=== PATIENT | male | born 1985 | race Caucasian/White ===

== ENCOUNTER 2016-11-12 04:34 | Emergency (ER) | payer BC ==
[2016-11-12 05:30] LABS: Hematocrit 49 % (42-52); Hemoglobin 16.4 g/dl (14.0-18.0); Mean Corpuscular HGB Conc 33 g/dl (31-36); Mean Corpuscular Hemoglobin 30 pg (27-31); Mean Corpuscular Volume 90 fL (80-94); Mean Platelet Volume 9 um3 (7.4-10.4); Red Blood Count 5.48 10^6/ul (4.0-5.4); Red Cell Distribution Width 13 % (10.5-15); White Blood Count 11.8 10^3/ul (3.5-10.8)
[2016-11-12 06:02] LABS: BUN/Creatinine Ratio 15.7 (8-20); Calcium 9.4 mg/dL (8.6-10.3); EGFR Non-African American 101.1 (>60); Potassium 3.7 mmol/L (3.5-5.0)
--- NOTE | 2016-11-12 06:05 | ED ---
Yang Long Benjamin, scribed for Cecil Reed MD on 11/12/16 at 0501 . Dizziness - HPI Summary HPI Summary: 31yo male c/o dizziness for a month. Pt came to ED today as his dizziness has gotten worse today. Pt also reports nausea and lightheadedness. Denies fever. Pt hasnt seen his PCP for his recent dizziness. - History Of Current Complaint Chief Complaint: EDDizziness Stated Complaint: NEAR SYNCOPE/NAUSEA/LIGHT HEADED Time Seen by Provider: 11/12/16 04:53 Hx Obtained From: Patient Onset/Duration: Still Present, Gradually Timing: Constant Severity Initially: Mild Severity Currently: Moderate Character: Lightheaded, Dizzy Aggravating Factor(s): Nothing Alleviating Factor(s): Nothing Associated Signs And Symptoms: Positive: Nausea, Fever - Allergies/Home Medications Allergies/Adverse Reactions: Allergies Allergy/AdvReac Type Severity Reaction Status Date / Time Procaine [From Novocain] Allergy Anxiety Verified 09/12/15 15:05 Pseudoephedrine Allergy GI Upset Verified 09/12/15 15:05 [From Sudafed] PMH/Surg Hx/FS Hx/Imm Hx Endocrine/Hematology History: Denies: Hx Diabetes, Hx Thyroid Disease Cardiovascular History: Denies: Hx Hypertension Respiratory History: Denies: Hx Asthma, Hx Chronic Obstructive Pulmonary Disease (COPD) GI History: Denies: Hx Ulcer Musculoskeletal History: Reports: Other Musculoskeletal History - right knee surgery x3, from sports injury Psychiatric History: Reports: Hx Anxiety, Hx Depression, Hx Inpatient Treatment , Hx Community Mental Health Tx, Hx Schizophrenia, Hx Substance Abuse Denies: Hx Attention Deficit Hyperactivity Disorder, Hx Eating Disorder, Hx Panic Disorder, Hx Post Traumatic Stress Disorder, Hx Bipolar Disorder, Hx Suicide Attempt, Hx of Violent Episodes Against Others, Other Psychiatric Issues /Disorders - Cancer History Hx Chemotherapy: No Hx Radiation Therapy: No Hx Palliative Cancer Treatment: No - Surgical History Surgery Procedure, Year, and Place: appe. right knee - meniscus and acl repair Hx Anesthesia Reactions: No Infectious Disease History: No Infectious Disease History: Denies: Hx Clostridium Difficile, Hx Hepatitis, Hx Human Immunodeficiency Virus (HIV), Hx of Known/Suspected MRSA, Hx Shingles, Hx Tuberculosis, Hx Known/ Suspected VRE, Hx Known/Suspected VRSA, Traveled Outside the [place] in Last 30 Days - Family History Known Family History: Positive: Other - schizophrenia - Social History Occupation: Unemployed Lives: Alone Alcohol Use: Rare Substance Use Type: Reports: Marijuana Substance Use Comment - Amount & Last Used: Daily use at home; 2-3 grams Smoking Status (MU): Never Smoked Tobacco Review of Systems Constitutional: Negative Eyes: Negative ENT: Negative Cardiovascular: Negative Respiratory: Negative Gastrointestinal: Negative Positive: Nausea Genitourinary: Negative Musculoskeletal: Negative Skin: Negative Neurological: Other - dizziness, lighheadedness Psychological: Normal All Other Systems Reviewed And Are Negative: Yes Physical Exam Triage Information Reviewed: Yes Vital Signs On Initial Exam: Initial Vitals Temp Pulse Resp BP Pulse Ox 98.5 F 77 18 142/88 100 11/12/16 04:40 11/12/16 04:40 11/12/16 04:40 11/12/16 04:40 11/12/16 04:40 Vital Signs Reviewed: Yes Appearance: Positive: Well-Appearing, No Pain Distress Skin: Positive: Warm Head/Face: Positive: Normal Head/Face Inspection Eyes: Positive: EOMI, SAYDA ENT: Positive: Hearing grossly normal Neck: Positive: Supple Respiratory/Lung Sounds: Positive: Clear to Auscultation, Breath Sounds Present Cardiovascular: Positive: RRR Abdomen Description: Positive: Nontender, Soft Bowel Sounds: Positive: Present Musculoskeletal: Positive: Strength/ROM Intact Neurological: Positive: Sensory/Motor Intact, Alert, Oriented to Person Place, Time, Normal Gait Diagnostics - Vital Signs Vital Signs Temp Pulse Resp BP Pulse Ox 11/12/16 04:55 99.1 F 78 18 132/70 98 11/12/16 04:40 98.5 F 77 18 142/88 100 - Laboratory Lab Results: Lab Results 11/12/16 11/12/16 Range/Units 05:00 05:00 WBC 11.8 H (3.5-10.8) 10^3/ul RBC 5.48 H (4.0-5.4) 10^6/ul Hgb 16.4 (14.0-18.0) g/dl Hct 49 (42-52) % MCV 90 (80-94) fL MCH 30 (27-31) pg MCHC 33 (31-36) g/dl RDW 13 (10.5-15) % Plt Count 217 (150-450) 10^3/ul MPV 9 (7.4-10.4) um3 Neut % (Auto) 69.5 (38-83) % Lymph % (Auto) 23.7 L (25-47) % [place] % (Auto) 5.9 (1-9) % Eos % (Auto) 0.4 (0-6) % Baso % (Auto) 0.5 (0-2) % Absolute Neuts (auto) 8.2 H (1.5-7.7) 10^3/ul Absolute Lymphs (auto) 2.8 (1.0-4.8) 10^3/ul Absolute Monos (auto) 0.7 (0-0.8) 10^3/ul Absolute Eos (auto) 0.1 (0-0.6) 10^3/ul Absolute Basos (auto) 0.1 (0-0.2) 10^3/ul Absolute Nucleated RBC 0 10^3/ul Nucleated RBC % 0 Sodium 137 (133-145) mmol/L Potassium 3.7 (3.5-5.0) mmol/L Chloride 103 (101-111) mmol/L Carbon Dioxide 26 (22-32) mmol/L Anion Gap 8 (2-11) mmol/L BUN 14 (6-24) mg/dL Creatinine 0.89 (0.67-1.17) mg/dL Est GFR ( Amer) 130.0 (>60) Est GFR (Non-Af Amer) 101.1 (>60) BUN/Creatinine Ratio 15.7 (8-20) Glucose 93 (70-100) mg/dL Calcium 9.4 (8.6-10.3) mg/dL Result Diagrams: 11/12/16 05:00 11/12/16 05:00 Lab Statement: Any lab studies that have been ordered have been reviewed, and results considered in the medical decision making process. Re-Evaluation - Re-Evaluation First Eval Change: Improved - results d/w pt Dizzy Course/Dx - Diagnoses Provider Diagnoses: Dizziness Discharge - Discharge Plan Condition: Stable Disposition: HOME Patient Education Materials: Dizziness (ED) Referrals: Luigi Ross MD [Primary Care Provider] - The documentation as recorded by the Yang mo Benjamin accurately reflects the service I personally performed and the decisions made by , Cecil Reed MD.
[2016-11-12 06:22] VITALS: BP 120/67
== END 2016-11-12 06:22 | disposition home or self-care (01) ==
LOC: ED 04:34
DX: R42 Dizziness and giddiness (principal)
CPT/HCPCS: 36415; 80048; 85025; 99282

== ENCOUNTER 2017-07-08 19:34 | Emergency (ER) | payer BC ==
[2017-07-08 19:49] VITALS: BP 171/94
--- NOTE | 2017-07-08 19:49 | UC ---
UC General HPI - HPI Summary HPI Summary: Pt presents with dizziness, tremor, nausea, and vomiting. He is uncooperative with obtaining the history and keeps wincing. When asked if he is in pain, he says "no, just give me a minute to calm down". After giving him a minute to calm down. He tells me that he is currently being treated for a sinus infection with amoxicillin, of which he is on day 5 of. For the last 2 days he has been nauseous with vomiting. Decreased appetite. Earlier today he found out his co-worker called in sick to work and this made him very anxious. He tells me that he has a history of anxiety and was on celexa in the past, but had an adverse reaction to this. Currently denies fever, cough, SOB, chest pain, abdominal pain. - History of Current Complaint Stated Complaint: FATIGUE,VOMITING Time Seen by Provider: 07/08/17 19:47 Hx Obtained From: Patient, Family/Lance Crewmember Onset/Duration: Sudden Onset Current Severity: None - Allergy/Home Medications Allergies/Adverse Reactions: Allergies Allergy/AdvReac Type Severity Reaction Status Date / Time procaine Allergy Anxiety Verified 07/08/17 19:52 pseudoephedrine Allergy GI Upset Verified 07/08/17 19:52 Home Medications: Home Medications Amoxicillin/Clavulanate TAB* [Augmentin TAB 500 mg*] 1,000 mg PO BID 07/08/17 [ History Confirmed 07/08/17] PMH/Surg Hx/FS Hx/Imm Hx Psychological History: Anxiety - Surgical History Surgical History: Yes Surgery Procedure, Year, and Place: appe. right knee - meniscus and acl repair - Family History Known Family History: Positive: Other - schizophrenia - Social History Alcohol Use: Rare Substance Use Type: Marijuana Substance Use Comment - Amount & Last Used: Daily use at home; 2-3 grams Smoking Status (MU): Never Smoked Tobacco - Immunization History Most Recent Influenza Vaccination: "never" Most Recent Tetanus Shot: 2005 Most Recent Pneumonia Vaccination: "never" Review of Systems Constitutional: Fatigue Skin: Negative Eyes: Negative ENT: Sinus Congestion Respiratory: Negative Cardiovascular: Other - Tachycardia Gastrointestinal: Vomiting, Nausea Genitourinary: Negative Neurovascular: Negative Musculoskeletal: Negative Neurological: Headache Psychological: Anxious All Other Systems Reviewed And Are Negative: Yes Physical Exam Triage Information Reviewed: Yes Appearance: No Pain Distress, Other: - diaphoretic lying on stretcher with hand covering his eyes at rest Vital Signs Reviewed: Yes Eyes: Positive: Conjunctiva Clear, Other: - EOMI. PERRLA ENT: Positive: Hearing grossly normal, Pharynx normal, Nasal congestion, TMs normal, Uvula midline. Negative: Pharyngeal erythema, TM bulging, TM dull, TM red, Tonsillar swelling, Muffled voice, Hoarse voice Neck: Positive: Supple, Nontender, No Lymphadenopathy Respiratory: Positive: Lungs clear, Normal breath sounds, No respiratory distress, No accessory muscle use Cardiovascular: Positive: No Murmur, Pulses Normal, Tachycardia Abdomen Description: Positive: Nontender, No Organomegaly, Soft. Negative: Distended, Guarding, McBurney's Point Tenderness Bowel Sounds: Positive: Present Neurological: Positive: Alert Psychological: Positive: Other: - Anxious Skin: Positive: rashes - Face Course/Dx - Course Course Of Treatment: EKG NSR 83bpm no ST changes as read by Dr. Zhou. I suspect viral gastroenteritis vs adverse reaction to antibiotic vs anxiety. He and his brother are requesting labwork and more definitive answers tonight - for this I suggested they go to the ED for further evaluation. They were agreeable with this plan and chose to go by private vehicle. - Differential Dx - Multi-Symptom Provider Diagnoses: Anxiety. Nausea. Vomiting Discharge - Discharge Plan Condition: Stable Disposition: OTHER Discharge Disposition Comment: To [facility] by private car Referrals: Luigi Ross MD [Primary Care Provider] - Additional Instructions: Please go directly to the [facility] ED - if your symptoms worse, please pot puller and dial [phone].
== END 2017-07-08 20:04 ==
LOC: UCEAST 19:34
DX: F41.9 Anxiety disorder, unspecified (principal); R11.2 Nausea with vomiting, unspecified; R42 Dizziness and giddiness; R53.83 Other fatigue; R00.0 Tachycardia, unspecified; R51 Headache; Z88.4 Allergy status to anesthetic agent; Z88.8 Allergy status to other drugs, medicaments and biological substances
CPT/HCPCS: 93005; 99212; G0463

== ENCOUNTER 2017-07-08 20:26 | Emergency (ER) | payer BC ==
[2017-07-08] MEDS ORDERED: Levalbuterol 1.25MG/0.5ML NEB INH ONE (22:39)
--- NOTE | 2017-07-08 22:46 | ED ---
Complex/Multi-Sys Presentation - HPI Summary HPI Summary: Vomiting w/ coughing only. No diarrhea - limited bowel movements since decreased appetite/food intake (he is still eating and drinking w/o pain). Augmentin Sunday for cough, sinusitis, otalgia - URI sx improving since taking - rash on face today which is red and daniel. Denies facial swelling, throat tightness, wheezing, chest tightness. Rash and vomiting started after taking augmentin. Has had amoxicillin in the past w/o difficulty however has not augmentin that he recalls. No h.o asthma however required breathing tx's a few times in the past (exposed to 2nd hand smoke as a child). Has not had a CXR since sx began 1 month ago (started as otalgia, nasal/sinus congestion and then moved into chest). He admits he continues to have PND. - History Of Current Complaint Chief Complaint: EDNauseaVomitDiarrh Time Seen by Provider: 07/08/17 22:09 Hx Obtained From: Patient, Family/Test Facility Engineer - brother - Allergies/Home Medications Allergies/Adverse Reactions: Allergies Allergy/AdvReac Type Severity Reaction Status Date / Time procaine Allergy Anxiety Verified 07/08/17 19:52 pseudoephedrine Allergy GI Upset Verified 07/08/17 19:52 PMH/Surg Hx/FS Hx/Imm Hx Previously Healthy: Yes Endocrine/Hematology History: Denies: Hx Diabetes, Hx Thyroid Disease Cardiovascular History: Denies: Hx Congenital Heart Disease, Hx Hypertension Respiratory History: Denies: Hx Asthma, Hx Chronic Obstructive Pulmonary Disease (COPD), Hx Pneumonia GI History: Denies: Hx Gastroesophageal Reflux Disease, Hx Ulcer Musculoskeletal History: Reports: Other Musculoskeletal History - right knee surgery x3, from sports injury Psychiatric History: Reports: Hx Anxiety, Hx Depression, Hx Inpatient Treatment , Hx Community Mental Health Tx, Hx Schizophrenia, Hx Substance Abuse Denies: Hx Attention Deficit Hyperactivity Disorder, Hx Eating Disorder, Hx Panic Disorder, Hx Post Traumatic Stress Disorder, Hx Bipolar Disorder, Hx Suicide Attempt, Hx of Violent Episodes Against Others, Other Psychiatric Issues /Disorders - Cancer History Hx Chemotherapy: No Hx Radiation Therapy: No Hx Palliative Cancer Treatment: No - Surgical History Surgery Procedure, Year, and Place: appe. right knee - meniscus and acl repair Hx Anesthesia Reactions: No Infectious Disease History: No Infectious Disease History: Denies: Hx Clostridium Difficile, Hx Hepatitis, Hx Human Immunodeficiency Virus (HIV), Hx of Known/Suspected MRSA, Hx Shingles, Hx Tuberculosis, Hx Known/ Suspected VRE, Hx Known/Suspected VRSA, Traveled Outside the [place] in Last 30 Days - Family History Known Family History: Positive: Other - schizophrenia, heart murmur - Social History Occupation: Employed Full-time Lives: Alone Alcohol Use: Rare Substance Use Type: Reports: Marijuana - helps w/ anxiety Substance Use Comment - Amount & Last Used: Daily use at home; 2-3 grams Hx Tobacco Use: No Smoking Status (MU): Never Smoked Tobacco Review of Systems Positive: Fatigue - tired of being sick Eyes: Negative Positive: Nasal Discharge. Negative: Sore Throat, Ear Ache Cardiovascular: Negative Positive: Cough. Negative: Shortness Of Breath Positive: Vomiting. Negative: Abdominal Pain, Diarrhea, Nausea Genitourinary: Negative Musculoskeletal: Negative Positive: Rash Neurological: Negative Positive: Anxious All Other Systems Reviewed And Are Negative: Yes Physical Exam Triage Information Reviewed: Yes Vital Signs On Initial Exam: Initial Vitals Temp Pulse Resp BP Pulse Ox 99.8 F 87 16 142/77 99 07/08/17 20:37 07/08/17 20:37 07/08/17 20:37 07/08/17 20:37 07/08/17 20:37 Vital Signs Reviewed: Yes Appearance: Positive: No Pain Distress, Ill-Appearing - appears fatigued and red rash on face, Obese Skin: Positive: Warm, Skin Color Reflects Adequate Perfusion, Dry - diffuse papular erythematous rash on face only - no vesicles, no pustules, no skin breakdown Head/Face: Positive: Normal Head/Face Inspection - otherwise normal than above Eyes: Positive: Normal, EOMI, SAYDA, Conjunctiva Clear - Anicteric sclera ENT: Positive: Hearing grossly normal, Pharyngeal erythema - Cobblestoning, Nasal congestion - Mild, TMs normal, Uvula midline. Negative: Tonsillar swelling, Tonsillar exudate, Trismus, Muffled voice, Hoarse voice, Sinus tenderness Neck: Positive: Supple, Nontender, No Lymphadenopathy Respiratory/Lung Sounds: Positive: Clear to Auscultation, Breath Sounds Present , Fatigue - Mild. Negative: Rales, Rhonchi, Stridor, Tracheal Deviation, Wheezes, Unable to speak in full sentences Cardiovascular: Positive: Normal, RRR, S1, S2. Negative: Murmur, Rub Abdomen Description: Positive: Nontender, No Organomegaly, Soft Bowel Sounds: Positive: Present Musculoskeletal: Positive: Normal, Strength/ROM Intact Neurological: Positive: Normal, Sensory/Motor Intact, Alert, Oriented to Person Place, Time, CN Intact II-III Psychiatric: Positive: Anxious - Concerned but calm and cooperative Diagnostics - Vital Signs Vital Signs Temp Pulse Resp BP Pulse Ox 07/08/17 20:37 99.8 F 87 16 142/77 99 - Laboratory Lab Statement: Any lab studies that have been ordered have been reviewed, and results considered in the medical decision making process. Re-Evaluation - Re-Evaluation First Eval Change: Improved Complex Multi-Symp Course/Dx Course Of Treatment: Patient presents with URI symptoms including cough 1 month. He was placed on Augmentin on Sunday (1 week ago). He reports his sinus congestion and ear congestion have resolved since taking this however he' s developed vomiting with coughing only, decreased appetite and a face rash that is red, bumpy and burning today. Denies diarrhea and in fact has not had many bowel movements due to lack of food intake. He is still drinking and eating somewhat. He's had amoxicillin in the past without difficulty however is never had Augmentin. His breathing was easier after Xopenex nebulizer treatment and chest x-ray was clear. It was decided he may be having an allergic reaction/sensitivity to clavulanic acid and advised to stop taking this and notify PCP. Additionally he will be placed on a 5 day regimen of prednisone for his reaction and rash. Explained this may also help with chest and upper respiratory congestion. Supportive care education provided as well. Patient will follow up with PCP later this week and return to the emergency department if danger signs or symptoms present. Reviewed with patient and brother who both agree with plan. Note: Patient inquires about how to address his anxiety should this present again as he experienced earlier tonight. I have a suspicion that the reaction he's having from Augmentin along with fatigue from lack of sleep and lack of eating are contributing to his anxiety. He does have a history of depression/anxiety however he has not been treated for this as of late. Suggested he try 50 mg of Benadryl if the symptoms occur again along with relaxation. If this does not alleviate his anxiety he may contact his PCP and/or return to the emergency department. Education provided for danger signs and symptoms of mental health issues for when to return to the emergency department and provided on discharge paperwork. - Diagnoses Provider Diagnoses: Allergic reaction caused by a drug, Bronchitis, URI (upper respiratory infection), Anxiety Discharge - Discharge Plan Condition: Stable Disposition: HOME Prescriptions: Levalbuterol HFA INHALER* [Xopenex Hfa Inhaler*] 2 puff INH Q6H PRN #1 mdi PRN Reason: Shortness Of Breath predniSONE TAB* [Deltasone TAB*] 40 mg PO DAILY #8 tab Patient Education Materials: Upper Respiratory Infection (ED), Acute Bronchitis (ED), Antibiotic Medication Allergy (ED) Forms: *Work Release Referrals: Luigi Ross MD [Primary Care Provider] - Additional Instructions: Rest, hydrate, humidify and complete medications as directed Use inhaler as needed for wheezing, cough, shortness of breath or chest tightness. He may try the following as well to aid with respiratory symptoms: Perform nasal wash/netti pot 2 x day with 8 ounces of warm water + 1/4 teaspoon of salt or saline nasal spray as needed Perform throat gargles with warm salt water as needed Drink 60+ ounces of water daily Sleep 8+ hours per night Avoid Dairy and sugar Drink hot herbal/decaf tea with lemon & honey Drink chicken broth (preferably organic, free range chicken) Use a humidifier in your house, but especially near bed at night. You may also keep home temperature at 68F or less. Try a facial steam with or without eucalyptus essential oil or Amadeo's vapor rub for decongestion. Cough drops Avoid smoke, candles, perfumes/colonge, air fresheners, scented lotions, etc Consider taking Vitamin D3 5,000iu and Vitamin C 1,000mg every day during illness Start taking probiotics after completion of antibiotics (ie. Yogurt and/or capsules of L. acidophilus, L. bifidus, L. casei, etc - make sure to get these from the refrigerated food section as they are live and active cultures) to prevent diarrhea and reduce GI distress. Stop Augmentin. Suspect he may be having a sensitivity/allergic reaction to the clavulanic acid portion of this medication as you have had amoxicillin in the past without difficulty. Please ask your PCP to at this to your allergy/ sensitivity list. Complete steroid as directed to reduce facial rash and burning. If this does not help symptoms and/or you develop difficulty breathing , swallowing, return of vomiting, return to the emergency department. NOTE: you mention you have issues with anxiety from time to time. You may try benadryl 50mg for relief. If this does not help, seek follow-up with PCP or come to ED if you develop suicidal or homicidal ideations.
[2017-07-09] MEDS ORDERED: predniSONE TAB* 20 MG PO ONE (00:15)
[2017-07-09 00:40] VITALS: BP 161/94
--- NOTE | 2017-07-09 07:24 | RAD ---
INDICATION: Cough for approximately one month. COMPARISON: There are no prior studies available for comparison. TECHNIQUE: Dual-energy PA and lateral views of the chest were obtained. The right costophrenic angle is cut off on the film limiting the exam slightly. FINDINGS: The heart is within normal limits in size. Mediastinal and hilar contours appear within normal limits. The lungs are clear. No pleural effusion is present. IMPRESSION: SLIGHTLY LIMITED EXAM, NO EVIDENCE FOR ACUTE FINDING.
== END 2017-07-09 00:42 | disposition home or self-care (01) ==
LOC: ED 20:26
DX: T36.0X5A Adverse effect of penicillins, initial encounter (principal); R05 Cough; R11.10 Vomiting, unspecified; R21 Rash and other nonspecific skin eruption; R53.83 Other fatigue; J40 Bronchitis, not specified as acute or chronic; J06.9 Acute upper respiratory infection, unspecified; F41.9 Anxiety disorder, unspecified; Y92.9 Unspecified place or not applicable
CPT/HCPCS: 71046; 94640; 99282; A9270-GY; J7512

== ENCOUNTER 2018-01-19 19:25 | Emergency (ER) | payer BC ==
--- NOTE | 2018-01-19 20:06 | UC ---
Psychiatric Complaint HPI - HPI Summary HPI Summary: Pt is a 32 year old M with pert PMHx: SI, schizophrenia, presents to [facility] with a chief complaint of mental breakdown ongoing for past few months. Pt is voluntarily requesting MHE. At bedside, he stated he's at the "end of his rope. " However he did not state a plan. Associated sx: BOYLE, otherwise he denies feeling physically OK. Pt smokes marijuana. Pt is medication non-compliant. - History Of Current Complaint Chief Complaint: EDMentalHealth Stated Complaint: MEDICATION CONSULTATION Hx Obtained From: Patient Onset/Duration: Gradual Onset, Lasting Weeks, Still Present Timing: Constant Character: Depressed Aggravating Factor(s): Medication Non-compliance Related History: Positive For: Prior Psychiatric Issues Has Suicidal: Thoughts - Risk Factor(s) Completed Suicide Risk Factors: Male, White Hungarian, Living Alone - Allergies/Home Medications Allergies/Adverse Reactions: Allergies Allergy/AdvReac Type Severity Reaction Status Date / Time amoxicillin [From Augmentin] Allergy Unknown Hives Verified 01/19/18 19:31 clavulanic acid Allergy Unknown Hives Verified 01/19/18 19:31 [From Augmentin] procaine Allergy Anxiety Verified 07/08/17 19:52 pseudoephedrine Allergy GI Upset Verified 07/08/17 19:52 PMH/Surg Hx/FS Hx/Imm Hx Previously Healthy: No Respiratory History: Other - No Hx of COPD Psychological History: Schizophrenia - Surgical History Surgical History: Yes Surgery Procedure, Year, and Place: appe. right knee - meniscus and acl repair - Family History Known Family History: Positive: Other - anxiety - sis - Social History Occupation: Employed Part-time Lives: Alone Alcohol Use: Rare Substance Use Type: Marijuana - helps w/ anxiety Substance Use Comment - Amount & Last Used: Daily use at home; 2-3 grams Smoking Status (MU): Never Smoked Tobacco - Immunization History Most Recent Influenza Vaccination: "never" Most Recent Tetanus Shot: 2005 Most Recent Pneumonia Vaccination: "never" Review of Systems Constitutional: Other - Neg: Fever Skin: Other - Neg: Bruising, Rash Eyes: Other - Neg: Blurred vision. ENT: Other - Neg: Ear ache. Respiratory: Other - Neg: SOB Cardiovascular: Other - Neg: CP Gastrointestinal: Other - Neg: N/V/D Musculoskeletal: Other: - Neg: Edema Neurological: Headache Psychological: Depressed, Other - pos: SI All Other Systems Reviewed And Are Negative: No Physical Exam - Summary Physical Exam Summary: Appearance: Alert, conversive, nontoxic appearing Skin: Warm, dry, no mottling, no rashes, no contusions HEENT: EOMI, PERRL, moist mucous membranes Neck: No masses on the neck, supple Respiratory: Clear to auscultation, breath sounds present, no rales, no rhonchi , no wheezes Cardiovascular: RRR, pulses are symmetrical in both lower and upper extremities Abdomen: Soft, non-tender Bowel Sounds: Present Musculoskeletal: No CVA tenderness, no obvious deformity, moving all extremities in a grossly normal manner Neurological: A&Ox3, CN II-XII Intact, moving all extremities symmetrically Psychiatric: Very distracted flat affect, poor insight and judgment. Triage Information Reviewed: Yes Vital Signs: Initial Vital Signs Temp 98.5 F 01/19/18 19:28 Pulse 84 01/19/18 19:28 Resp 20 01/19/18 19:28 BP 139/100 01/19/18 19:28 Pulse Ox 97 01/19/18 19:28 Vital Signs Reviewed: Yes Diagnostics - EKG EKG Comments: NSR ,incomplete RBBB 66BPM at 20:16. Psych Complaint Course/Dx - Course Course Of Treatment: Pt is a 32 year old M with pert PMHx: SI, schizophrenia, presenting with ongoing mental breakdown, SI. Pt is voluntarily requesting MHE. At bedside, he stated he's at the "end of his rope." Pt is medication non- compliant. Pt medically cleared at 21:27 for mental health. Sign out at shift change to Dr. Lopez pending MHE. Discharge - Sign-Out/Discharge Documenting (check all that apply): Sign-Out Patient Signing out patient TO: Raffi Lopez - Sign out at shift change pending MHE. - Discharge Plan Referrals: Luigi Ross MD [Primary Care Provider] - - Attestation Statements Document Initiated by Scribe: Yes Documenting Scribe: Earle Mcfarland Provider For Whom Scribe is Documenting (Include Credential): Dr. Lupe Mendoza Scribe Attestation: Mercedes, Earle Mcfarland, scribed for Dr. Lupe Mendoza on 01/19/18 at 2127.
[2018-01-19 20:31] LABS: Urine Appearance Clear; Urine Blood Negative (Negative); Urine Color Colorless; Urine Ketones Negative (Negative); Urine Protein Negative (Negative); Urine Specific Gravity 1.002 (1.010-1.030); Urine Urobilinogen Negative (Negative)
[2018-01-19 20:39] LABS: ABS Basophils 0.1 10^3/ul (0-0.2); ABS Eosinophils 0.1 10^3/ul (0-0.6); ABS Lymphocytes 3.7 10^3/ul (1.0-4.8); ABS Monocytes 0.9 10^3/ul (0-0.8); ABS Neutrophils 6.6 10^3/ul (1.5-7.7); ABS Nucleated RBC 0 10^3/ul; Eosinophil % 0.9 % (0-6); Hematocrit 46 % (42-52); Hemoglobin 15.5 g/dl (14.0-18.0); Lymphocyte % 32.5 % (25-47); Mean Corpuscular HGB Conc 34 g/dl (31-36); Mean Corpuscular Hemoglobin 30 pg (27-31); Mean Corpuscular Volume 89 fL (80-94); Mean Platelet Volume 8.8 um3 (7.4-10.4); Nucleated Red Blood Cells % 0; Platelet Count 233 10^3/ul (150-450); Red Blood Count 5.19 10^6/ul (4.00-5.40); Red Cell Distribution Width 13 % (10.5-15); White Blood Count 11.3 10^3/ul (3.5-10.8)
[2018-01-19 20:55] LABS: EGFR Non-African American 96.6 (>60)
--- NOTE | 2018-01-19 21:38 | ED ---
Progress - Progress Note Progress Note: 22:00- The pt was signed out from Dr. Lupe Mendoza due to pending MHE. 00:53- The pt has been diagnosed with acute psychosis and placed on an MHU hold to be evaluated by Dr. Cavazos in the morning. The pt will be signed out to Dr. Quinten Badillo MD. 07:00- The pt signed out to Dr. Shipley due to pending evaluation by Dr. Macy MD. Course/Dx - Course Course Of Treatment: Pt is a 32 year old M with pert PMHx: SI, schizophrenia, presenting with ongoing mental breakdown, SI. Pt is voluntarily requesting MHE. At bedside, he stated he's at the "end of his rope." Pt is medication non- compliant. Pt medically cleared at 21:27 for mental health. Sign out at shift change to Dr. oLpez pending MHE. - Diagnoses Provider Diagnoses: Acute psychosis Discharge - Sign-Out/Discharge Documenting (check all that apply): Sign-Out Patient Signing out patient TO: Augusto Shipley - At 07:00 - Discharge Plan Condition: Stable Referrals: Luigi Ross MD [Primary Care Provider] - 3 Days - Attestation Statements Document Initiated by Scribe: Yes Documenting Scribe: Jenny Cabral Provider For Whom Scribe is Documenting (Include Credential): Dr. Raffi Lopez MD Scribe Attestation: Jenny Long , scribed for Dr. Raffi Lopez MD on 01/20/18 at 0243.
--- NOTE | 2018-01-20 02:52 | ED ---
Progress - Progress Note Progress Note: 22:00- The pt was signed out from Dr. Lupe Mendoza due to pending MHE. 00:53- The pt has been diagnosed with acute psychosis and placed on an MHU hold to be evaluated by Dr. Cavazos in the morning. The pt will be signed out to Dr. Quinten Badillo MD. 07:00- The pt signed out to Dr. Shipley due to pending evaluation by Dr. Macy MD. - Consult/PCP Time Called: 00:00 Course/Dx - Course Course Of Treatment: Pt is a 32 year old M with pert PMHx: SI, schizophrenia, presenting with ongoing mental breakdown, SI. Pt is voluntarily requesting MHE. At bedside, he stated he's at the "end of his rope." Pt is medication non- compliant. Pt medically cleared at 21:27 for mental health. Sign out at shift change to Dr. Lopez pending MHE. - Diagnoses Provider Diagnoses: Acute psychosis Discharge - Sign-Out/Discharge Documenting (check all that apply): Sign-Out Patient Signing out patient TO: Augusto Shipley - At 07:00 - Discharge Plan Condition: Stable Referrals: Luigi Ross MD [Primary Care Provider] - 3 Days - Billing Disposition and Condition Condition: STABLE - Attestation Statements Document Initiated by Scribe: Yes Documenting Scribe: Jenny Cabral Provider For Whom Rafal is Documenting (Include Credential): Dr. Raffi Lopez MD Scribe Attestation: Jenny Long scribed for Dr. Raffi Lopez MD on 01/20/18 at 0407. Scribe Documentation Reviewed: Yes Provider Attestation: The documentation as recorded by the Jenny mo accurately reflects the service I personally performed and the decisions made by me, Dr. Raffi Lopez MD
[2018-01-20] MEDS ORDERED: Acetaminophen TAB* 325 MG PO ONE (07:36)
--- NOTE | 2018-01-20 10:33 | ED ---
Progress - Progress Note Progress Note: 22:00- The pt was signed out from Dr. Lupe Mendoza due to pending MHE. 00:53- The pt has been diagnosed with acute psychosis and placed on an MHU hold to be evaluated by Dr. Cavazos in the morning. The pt will be signed out to Dr. Quinten Badillo MD. 07:00- The pt signed out to Dr. Shipley due to pending evaluation by Dr. Macy MD. - Consult/PCP Time Called: 00:00 Course/Dx - Course Course Of Treatment: Pt is a 32 year old M with pert PMHx: SI, schizophrenia, presenting with ongoing mental breakdown, SI. Pt is voluntarily requesting MHE. At bedside, he stated he's at the "end of his rope." Pt is medication non- compliant. Pt medically cleared at 21:27 for mental health. Per mental health evaluation, patient should be admitted for further evaluation and will be transferred due to there being no beds. Pt is hemodynamically stable and A&Ox3. - Diagnoses Provider Diagnoses: Schizophrenia Discharge - Sign-Out/Discharge Documenting (check all that apply): Patient Departure - Transfer - Discharge Plan Condition: Stable Disposition: TRANS HIGHER LVL OF CARE FAC Referrals: Luigi Ross MD [Primary Care Provider] - 3 Days - Attestation Statements Document Initiated by Scribe: Yes Documenting Scribe: Marizol Contreras Provider For Whom Scribe is Documenting (Include Credential): Augusto Shipley MD Scribe Attestation: IMarizol, scribed for Augusto Shipley MD on 01/20/18 at 1033.
[2018-01-20] MEDS ORDERED: LORazepam TAB(*) 1 MG PO ONE (10:36)
--- NOTE | 2018-01-20 10:44 | PN ---
ED Flex Patient Progress Note Date of Service: 01/20/18 Subjective: ED Flex Day #1 for this 32 y.o. white male with a history of schizophrenia who presents voluntarily seeking help for symptoms of dysphoric mood, paranoid ideation and occupational stressors. 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 He has paranoid thoughts that he knows them from other places and times in his life and they have come back to harm him. He denies HI but cannot assure me that he will not harm himself. He used to be enrolled at [facility] and took IM Abilify Maintena, however, he has not followed up with medications or appointment in 1.5 years. Objective: overweight, white male, dishevelled, malodorous, distraught with delusional thought content and depressed mood; denies overt SI but cannot contract for safety Assessment: Schizophrenia Plan: Will restart meds: aripiprazole 10mg PO qday and citalopram 20mg PO qday. Patient would benefit from admission but no beds available. Will transfer to outside hospital. Vital Signs Temp Pulse Resp BP Pulse Ox 98.2 F 66 20 126/67 96 01/19/18 23:26 01/19/18 23:26 01/19/18 23:26 01/19/18 23:26 01/19/18 23:26 Lab Results - Entire Visit 01/19/18 01/19/18 01/19/18 20:26 20:25 20:20 WBC 11.3 H RBC 5.19 Hgb 15.5 Hct 46 MCV 89 MCH 30 MCHC 34 RDW 13 Plt Count 233 MPV 8.8 Neut % (Auto) 58.1 Lymph % (Auto) 32.5 Nobles % (Auto) 8.0 H Eos % (Auto) 0.9 Baso % (Auto) 0.5 Absolute Neuts (auto) 6.6 Absolute Lymphs (auto) 3.7 Absolute Monos (auto) 0.9 H Absolute Eos (auto) 0.1 Absolute Basos (auto) 0.1 Absolute Nucleated RBC 0 Nucleated RBC % 0 Sodium 138 Potassium 3.7 Chloride 105 Carbon Dioxide 28 Anion Gap 5 BUN 11 Creatinine 0.92 Est GFR ( Amer) 116.9 Est GFR (Non-Af Amer) 96.6 BUN/Creatinine Ratio 12.0 Glucose 97 Calcium 9.1 Total Bilirubin 0.30 AST 22 ALT 39 Alkaline Phosphatase 58 Total Protein 6.7 Albumin 4.3 Globulin 2.4 Albumin/Globulin Ratio 1.8 TSH 2.56 Urine Color Colorless Urine Appearance Clear Urine pH 6.0 Ur Specific [place] 1.002 L Urine Protein Negative Urine Ketones Negative Urine Blood Negative Urine Nitrate Negative Urine Bilirubin Negative Urine Urobilinogen Negative Ur Leukocyte Esterase Negative Urine Glucose Negative Salicylates < 2.50 Urine Opiates Screen Acetaminophen < 15 Ur Barbiturates Screen Ur Phencyclidine Scrn Ur Amphetamines Screen U Benzodiazepines Scrn Urine Cocaine Screen U Cannabinoids Screen Serum Alcohol < 10 01/19/18 20:20 WBC RBC Hgb Hct MCV MCH MCHC RDW Plt Count MPV Neut % (Auto) Lymph % (Auto) Nobles % (Auto) Eos % (Auto) Baso % (Auto) Absolute Neuts (auto) Absolute Lymphs (auto) Absolute Monos (auto) Absolute Eos (auto) Absolute Basos (auto) Absolute Nucleated RBC Nucleated RBC % Sodium Potassium Chloride Carbon Dioxide Anion Gap BUN Creatinine Est GFR ( Amer) Est GFR (Non-Af Amer) BUN/Creatinine Ratio Glucose Calcium Total Bilirubin AST ALT Alkaline Phosphatase Total Protein Albumin Globulin Albumin/Globulin Ratio TSH Urine Color Urine Appearance Urine pH Ur Specific [place] Urine Protein Urine Ketones Urine Blood Urine Nitrate Urine Bilirubin Urine Urobilinogen Ur Leukocyte Esterase Urine Glucose Salicylates Urine Opiates Screen None detected Acetaminophen Ur Barbiturates Screen None detected Ur Phencyclidine Scrn None detected Ur Amphetamines Screen None detected U Benzodiazepines Scrn None detected Urine Cocaine Screen None detected U Cannabinoids Screen Presumptive positive A Serum Alcohol
[2018-01-20] MEDS ORDERED: ARIPiprazole TAB* 5 MG PO SCH (11:00)
[2018-01-20] MEDS ORDERED: Citalopram TAB* 20 MG PO SCH (11:00)
[2018-01-20 19:09] VITALS: BP 132/71
--- NOTE | 2018-01-20 19:23 | ED ---
Progress - Progress Note Progress Note: 1923: Esteban arrived to transfer patient. - Consult/PCP Time Called: 00:00 Course/Dx - Course Course Of Treatment: Pt is a 32 year old M with pert PMHx: SI, schizophrenia, presenting with ongoing mental breakdown, SI. Pt is voluntarily requesting MHE. At bedside, he stated he's at the "end of his rope." Pt is medication non- compliant. Pt medically cleared at 21:27 for mental health. Per mental health evaluation, patient should be admitted for further evaluation and will be transferred due to there being no beds. Pt is hemodynamically stable and A&Ox3. - Diagnoses Provider Diagnoses: Schizophrenia Discharge - Sign-Out/Discharge Documenting (check all that apply): Patient Departure - transfer - Discharge Plan Condition: Stable Disposition: TRANS HIGHER LVL OF CARE FAC Referrals: Luigi Ross MD [Primary Care Provider] - 3 Days - Billing Disposition and Condition Condition: STABLE Disposition: Trans Higher Lvl of Care Fac - Attestation Statements Document Initiated by Kavinibe: Yes Documenting Scribe: Deuce Estrada Provider For Whom Rafal is Documenting (Include Credential): Dr. Raffi Lopez MD Scribe Attestation: Deuce Long scribed for Dr. Raffi Lopez MD on 01/21/18 at 0019. Scribe Documentation Reviewed: Yes Provider Attestation: The documentation as recorded by the Deuce mo accurately reflects the service I personally performed and the decisions made by me, Dr. Raffi Lopez MD
== END 2018-01-20 19:28 | disposition short-term general hospital (02) ==
LOC: ED 19:25
DX: F23 Brief psychotic disorder (principal); F20.9 Schizophrenia, unspecified; Z88.0 Allergy status to penicillin
CPT/HCPCS: 36415; 80053; 80307; 80320; 80329; 81003; 84443; 85025; 93005; 99285; A9270-GY; G0480